=== PATIENT | male | born 1945 | race Caucasian/White ===

== ENCOUNTER 2017-05-03 11:27 | Inpatient (IN) | payer OTHER, MEDICARE ==
[2017-05-03] VITALS (11 sets, daily range): BP systolic 100–139; BP diastolic 65–88; PULSE 83–105; TEMP 36.8–37.4; O2SAT 97–100; Ht 170.2 cm; Wt 149.5 kg
[~2017-05-03] VITALS: Ht 170.2 cm; Wt 149.5 kg
[2017-05-03] MEDS ORDERED: ALBUT/IPRATROP 3MG/0.5MG NEB 3 ML VIAL INH STA (11:57)
[2017-05-03] MEDS ORDERED: ACETAMINOPHEN IV 100 ML IV ONE (12:00)
[2017-05-03 12:22] LABS: HEMATOCRIT 35.4 % (42-52); HEMOGLOBIN 12.7 g/dL (14.0-18.0); MEAN CELL VOLUME 94.1 fL (80-100); MEAN CORPUSCULAR HEMOGLOBIN 33.8 pg (25-34); MEAN CORPUSCULAR HGB CONC 35.9 g/dl (32-36); MEAN PLATELET VOLUME 9.4 fL (7.4-10.4); PLATELET COUNT 175 K/uL (130-400); RED CELL DISTRIBUTION WIDTH CV 13.9 % (11.5-14.5); RED CELL DISTRIBUTION WIDTH SD 48.1 fL (36.4-46.3); WHITE BLOOD COUNT 11.09 K/uL (4.8-10.8)
[2017-05-03 12:34] LABS: ALBUMIN 2.2 gm/dl (3.4-5.0); ALT/SGPT 46 U/L (12-78); BLOOD UREA NITROGEN 39 mg/dl (7-18); CARBON DIOXIDE 27 mmol/L (21-32); GLUCOSE 123 mg/dl (70-99); POTASSIUM 4.7 mmol/L (3.5-5.1); SODIUM 123 mmol/L (136-145)
[2017-05-03 12:39] LABS: ALKALINE PHOSPHATASE 87 U/L (45-117); AST/SGOT 80 U/L (15-37); CKMB 3.7 ng/ml (0.5-3.6); TOTAL PROTEIN 6.9 gm/dl (6.4-8.2)
[2017-05-03 12:47] LABS: EOS % 0.1 %; EOS ABS # 0.01 K/uL (0-0.5); IG# 0.19 K/uL (0.00-0.02); LYMPH % 3.3 %; LYMPH ABS # 0.37 K/uL (1.2-3.4); MONO % 5.3 %; MONO ABS # 0.59 K/uL (0.11-0.59); NEUT % 89.6 %; NEUT ABS # 9.93 K/uL (1.4-6.5)
--- NOTE | 2017-05-03 12:58 | DIAGNOSTIC IMAGING REPORT ---
CHEST ONE VIEW PORTABLE CLINICAL HISTORY: Shortness of breath. Respiratory distress. COMPARISON STUDY: No previous studies for comparison. FINDINGS: Note is made of a 4.7 cm round right infrahilar density. There is asymmetric right hilar enlargement. There is mild left basilar opacity. There is no convincing evidence for pulmonary edema. There is mild reticulonodular interstitial thickening. Moderate enlargement of the cardiac silhouette is noted. There is mild mediastinal widening. IMPRESSION: 1. 4.7 cm right infrahilar mass-like opacity with asymmetric right hilar enlargement and reticulonodular interstitial thickening, greater within the right lung. Mild left basilar opacity. The findings may reflect pneumonia however a neoplastic process is within the differential. A follow-up chest CT is recommended. 2. Moderate cardiomegaly without evidence for pulmonary edema. Electronically signed by: Mehrdad Howard M.D. 05/03/2017 12:56 PM Dictated Date/Time: 05/03/2017 12:53 PM
[2017-05-03 13:04] LABS: INR 1.4 (0.9-1.1); PTT PATIENT 38.8 SECONDS (21.0-31.0)
[2017-05-03] MEDS ORDERED: TERA5CAP PO (13:12)
[2017-05-03] MEDS ORDERED: APIX1TAB3 PO (13:12)
[2017-05-03] MEDS ORDERED: LORA-741 PO (13:12)
[2017-05-03] MEDS ORDERED: BISA10SU7 PR (13:12)
[2017-05-03] MEDS ORDERED: ATOR-24 PO (13:12)
[2017-05-03] MEDS ORDERED: ACET-1256 PO (13:12)
[2017-05-03] MEDS ORDERED: DILT120C68 PO (13:12)
[2017-05-03] MEDS ORDERED: SODIENE PR (13:12)
[2017-05-03] MEDS ORDERED: IPRASOL4 INH ×2 (13:12)
[2017-05-03] MEDS ORDERED: POLY335019 PO (13:12)
[2017-05-03] MEDS ORDERED: DOCU100C31 PO (13:12)
[2017-05-03] MEDS ORDERED: LNX125 PO (13:12)
[2017-05-03] MEDS ORDERED: META1TAB22 PO (13:12)
[2017-05-03] MEDS ORDERED: MOML PO (13:12)
[2017-05-03] MEDS ORDERED: TORS20TA2 PO (13:12)
[2017-05-03] MEDS ORDERED: SPIR25TA PO (13:12)
[2017-05-03] MEDS ORDERED: ASPI81TA28 PO (13:12)
[2017-05-03] MEDS ORDERED: SENN-65 PO (13:12)
[2017-05-03] MEDS ORDERED: CEFD300C2 PO (13:12)
[2017-05-03] MEDS ORDERED: TRAZ50TA35 PO (13:12)
[2017-05-03] MEDS ORDERED: FLUT1INH INH (13:12)
[2017-05-03] MEDS ORDERED: PRED20TA2 PO (13:12)
[2017-05-03] MEDS ORDERED: LORAZEPAM 2 MG/ML 1 ML VIAL IV STA (13:14)
--- NOTE | 2017-05-03 13:29 | EMERGENCY ROOM VISIT NOTE ---
ED Visit Note First contact with patient: 11:35 This Patient was discussed with the Physician front end assistant, Esteban Durham PA-C. The pertinent historical and physical exam findings were confirmed. I agree with the studies ordered and with the interpretations of these studies. I agree with the disposition and care plan.
[2017-05-03] MEDS ORDERED: VANCOMYCIN CONSULT ACTIVE PRN ×2 (13:45)
[2017-05-03] MEDS ORDERED: VANCOMYCIN INJ 1,000 MG in SODIUM CHLORIDE 0.9% 250ML 250 ML IV STA (13:45)
[2017-05-03] MEDS ORDERED: LEVAQUIN 750MG / 150ML D5W IV ONE (13:45)
[2017-05-03] MEDS ORDERED: CONSULT PHARMACY STA (13:48)
--- NOTE | 2017-05-03 13:56 | History and Physical ---
History & Physical Date & Time of Service: May 03, 2017 at 13:56 Chief Complaint: Resp Distress Primary Care Physician: Amaya Don PA-C History of Present Illness Source: hospital records This is a 18-year-old male with a past medical history of asthma, hypertension, hyperlipidemia recently diagnosed with A. fib on Eliquis and digoxin, history of coronary artery disease, history of CKD stage III, chronic diastolic heart failure, obesity, obstructive sleep apnea on CPAP at night, Patient was recently admitted to [facility] from 04/15/2017 to 05/02/2017 for shortness of breath, chest tightness, productive cough, found to have a new diagnosis of atrial fibrillation with RVR, Patient was diagnosed with large B-cell lymphoma via CT-guided biopsy of lymph nodes done on 04/25/2017, Patient was evaluated by oncology Dr. Iqbal, was scheduled to follow-up with hematology oncology in 1-2 weeks, for initiation of outpatient chemo. She was discharged to [facility] rehab, Sent to rehab to [facility] ER, as patient is developed severe shortness of breath, tachypnea tachycardia In the ER patient was found to be A. fib RVR, given dose of digoxin Chest x-ray shows 4 4.7 cm right infrahilar masslike opacity with asymmetric right hilar enlargement and reticulonodular interstitial thickening, greater within the right lung. Mild left left basilar opacity opacity. The findings may reflect pneumonia however a neoplastic process is within the differential Remained hypoxic in the ER required 5 L O2 via nasal cannula (was not on home O2 prior) Given a dose of nebulizer treatment, empiric antibiotic with Levaquin in ER Initially admitted to telemetry. Next few hours, patient's respiratory status continues to decline, found to have increased respiratory distress with using of accessory muscles. Pulmonary critical care was consulted. Patient was transferred to ICU for further care CT chest with contrast done which shows very large tumor burden with an increase in number and size of the pulmonary nodule compared to prior CAT scan done and [facility], compromising his intrathoracic airway. Case discussed with sports internship and on-call hematology oncology Dr. Gomez, recommend patient needs to be transferred to tertiary care unit preferably [facility] as patient will need emergent chemo treatment Plan of care discussed with on-call hematology oncology in [facility] and pulmonary critical care patient was intubated in the ICU for airway support Life flighted to [facility] . Patient's given update over the phone Social History Smoking Status: Unknown if Ever Smoked Allergies Coded Allergies: Ampicillin (Verified Allergy, Unknown, RASH,ITCHING, 05/03/17) Sulbactam (Verified Allergy, Unknown, RASH,ITCHING, 05/03/17) Home Medications Scheduled Apixaban (Eliquis), 5 MG PO BID Aspirin (Aspirin Ec), 81 MG PO DAILY Atorvastatin (Lipitor), 40 MG PO DAILY Cefdinir (Omnicef), 300 MG PO Q12H Digoxin (Digoxin), 0.125 MCG PO DAILY Diltiazem Hcl Ext Rel (Tiazac), 480 MG PO QPM Docusate Sodium (Docusate Sodium), 1 CAP PO BID Fluticasone Furoate-Vilanterol (Breo Ellipta), 1 PUFF INH DAILY Ipratropium-Albuterol (Duoneb), 1 TREATMENT INH QID Ipratropium-Albuterol (Duoneb), 1 TREATMENT INH Q4H Levalbuterol (Levalbuterol), 1.25 MG INH Q6R Prednisone (Prednisone Tab), 20 MG PO DAILY Spironolactone (Aldactone), 25 MG PO DAILYBB Terazosin Hcl (Hytrin), 10 MG PO HS Torsemide (Demadex), 40 MG PO DAILYBB Scheduled PRN Acetaminophen (Tylenol), 500 MG PO Q4 PRN for UNDECIDED Bisacodyl (Bisac-Evac), 1 SUPP GA DAILY PRN for Consult Lorazepam (Ativan), 0.5 MG PO Q8 PRN for Anxiety Magnesium Hydroxide (Milk Of Magnesia), 30 ML PO DAILY PRN for Constipation Metaxalone (Skelaxin), 200 MG PO TID PRN for MUSCLE SPASMS Polyethylene Glycol 3350 (Miralax), 17 GM PO DAILY PRN for Constipation Senna/Docusate Sod (Senokot S), 1 TAB PO DAILY PRN for Constipation Sodium Phosphate/Biphosphate (Fleet Enema), 1 EA GA DAILY PRN for Constipation Trazodone Hcl (Trazodone), 100 MG PO HS PRN for Sleep Review of Systems Constitutional: + sweats, + weakness, + fatigue Respiratory: + cough, + wheezing, + shortness of breath, + dyspnea on exertion , + dyspnea at rest, + problem reported (significant respiratory distress started this AM ) Cardiovascular: + chest pain (due to SOB ), + orthopnea Abdomen: + nausea Neurologic: + weakness, + numbness/tingling, + vertigo, + balance problems Psychiatric: + anxiety Endocrine: + fatigue Physical Exam Vital Signs Date Time Temp Pulse Resp B/P (MAP) Pulse Ox O2 Delivery O2 Flow Rate FiO2 05/03/17 13:15 37.3 98 24 130/86 94 Oxymask 4.0 05/03/17 13:15 37.3 05/03/17 11:59 94 Oxymask 3.0 05/03/17 11:53 118 05/03/17 11:35 38.0 105 32 145/100 97 Non-Rebreather 15.0 General Appearance: + moderate distress (Due to respiratory failure / respiratory distress), + obese Head: normocephalic, atraumatic Eyes: normal inspection, sclerae normal ENT: + pertinent finding (BiPAP on place) Neck: no JVD Respiratory/Chest: + respiratory distress, + decreased breath sounds, + accessory muscle use, + crackles, + rales Cardiovascular: + tachycardia, + irregularly irregular Abdomen/GI: non tender, soft Extremities/Musculoskelatal: no pedal edema Neurologic/Psych: + pertinent finding (Very anxious due to respiratory distress ) Skin: + diaphoresis Diagnostics Laboratory Results Results Past 24 Hours Test 05/03/17 12:05 05/03/17 12:44 05/03/17 13:44 Range/Units White Blood Count 11.09 4.8-10.8 K/uL Red Blood Count 3.76 4.7-6.1 M/uL Hemoglobin 12.7 14.0-18.0 g/dL Hematocrit 35.4 42-52 % Mean Corpuscular Volume 94.1 80-100 fL Mean Corpuscular Hemoglobin 33.8 25-34 pg Mean Corpuscular Hemoglobin Concent 35.9 32-36 g/dl Platelet Count 175 130-400 K/uL Mean Platelet Volume 9.4 7.4-10.4 fL Neutrophils (%) (Auto) 89.6 % Lymphocytes (%) (Auto) 3.3 % Monocytes (%) (Auto) 5.3 % Eosinophils (%) (Auto) 0.1 % Basophils (%) (Auto) 0.0 % Neutrophils # (Auto) 9.93 1.4-6.5 K/uL Lymphocytes # (Auto) 0.37 1.2-3.4 K/uL Monocytes # (Auto) 0.59 0.11-0.59 K/uL Eosinophils # (Auto) 0.01 0-0.5 K/uL Basophils # (Auto) 0.00 0-0.2 K/uL RDW Standard Deviation 48.1 36.4-46.3 fL RDW Coefficient of Variation 13.9 11.5-14.5 % Immature Granulocyte % (Auto) 1.7 % Immature Granulocyte # (Auto) 0.19 0.00-0.02 K/uL Toxic Vacuolation 1+ Sodium Level 123 136-145 mmol/L Potassium Level 4.7 3.5-5.1 mmol/L Chloride Level 86 98-107 mmol/L Carbon Dioxide Level 27 21-32 mmol/L Anion Gap 10.0 3-11 mmol/L Blood Urea Nitrogen 39 7-18 mg/dl Creatinine 1.70 0.60-1.40 mg/dl Est Creatinine Clear Calc Drug Dose 60.4 ml/min Estimated GFR () 46.3 Estimated GFR (Non- 40.0 BUN/Creatinine Ratio 22.8 10-20 Random Glucose 123 70-99 mg/dl Lactic Acid Level 1.7 0.4-2.0 mmol/L Calcium Level 8.0 8.5-10.1 mg/dl Total Bilirubin 0.9 0.2-1 mg/dl Aspartate Amino Transf (AST/SGOT) 80 15-37 U/L Alanine Aminotransferase (ALT/SGPT) 46 12-78 U/L Alkaline Phosphatase 87 45-117 U/L Total Creatine Kinase 377 39-308 U/L Creatine Kinase MB 3.7 0.5-3.6 ng/ml Creatine Kinase MB Ratio 1.0 0-3.0 Troponin I < 0.015 0-0.045 ng/ml Total Protein 6.9 6.4-8.2 gm/dl Albumin 2.2 3.4-5.0 gm/dl Globulin 4.7 2.5-4.0 gm/dl Albumin/Globulin Ratio 0.5 0.9-2 Prothrombin Time 14.5 9.0-12.0 SECONDS Prothromb Time International Ratio 1.4 0.9-1.1 Activated Partial Thromboplast Time 38.8 21.0-31.0 SECONDS Partial Thromboplastin Ratio 1.5 Microbiology Results 05/03/17 Blood Culture, Ordered Pending 05/03/17 Blood Culture, Received Pending Diagnostic Radiology CHEST XRAY : IMPRESSION: 1. 4.7 cm right infrahilar mass-like opacity with asymmetric right hilar enlargement and reticulonodular interstitial thickening, greater within the right lung. Mild left basilar opacity. The findings may reflect pneumonia however a neoplastic process is within the differential. A follow-up chest CT is recommended. 2. Moderate cardiomegaly without evidence for pulmonary edema. CT ANGIOGRAM OF THE CHEST FINDINGS: There is an enlarged upper left paratracheal lymph node versus substernal thyroid extension. There was no evidence of thoracic aortic dilatation. Evaluation of pulmonary arteries is limited secondary to respiratory motion artifact. No central emboli are visualized. There are small bilateral pleural effusions right greater than left There are multiple bilateral pulmonary masses. This includes a 63 mm right lower lobe pulmonary nodule a 41 mm right lower lobe pulmonary nodule a 63 mm right hilar mass as well as a 56 mm right hilar mass. IMPRESSION: 1. Multiple large bilateral pulmonary masses. The findings should be presumed to represent metastatic disease unless proven otherwise 2. Small bilateral pleural effusions right greater than left 3. Examination limited due to respiratory motion artifact and large body habitus. No central emboli identified. EKG Twelve-lead EKG: Ventricular rate 102 bpm QRS duration: 74 ms QT/QTc: 350/456 ms P-R-T 68 62 Atrial fibrillation with rapid ventricular response Low voltage QRS Abnormal EKG No previous EKGs available Impression Assessment and Plan 1. Acute hypoxemic respiratory failure: Due to large tumor burden in chest, CT chest with contrast shows progression of tumor/mass in chest compromising intrathoracic airway . Blood gas shows: PH 7.48/PCO2 36/PO2 73/bicarb of 27/ABG oxygen saturation 95.3/on 3 L by nasal cannula Patient continued to decompensate while on BiPAP Patient is evaluated in ICU Plan of care discussed with sports internship and on-call hematology oncology. We will need to be transferred to tertiary care center for emergent chemo treatment/and ongoing respiratory support 2. Diffuse large B-cell lymphoma: Recently diagnosed 2 weeks ago [facility] Evaluated by hematology oncology Dr. Iqbal CT Guided biopsy of large pulmonary nodule on 04/25 showed large B-cell lymphoma. Patient did not receive any chemo treatment in that admission Was scheduled to see hematology oncology 1-2 weeks after discharge from rehab. Surgical pathology biopsy from the lung nodule: diffuse large cell lymphoma, non-germinal cell type, negative for CD10, positive for CD45 CD20 and MUMI . EBV is positive in the tumor Plan of care discussed with on-call pathology oncology in [place] , Is being transferred to ICU and [facility] 3. A. fib RVR: Recently diagnosed in the past admission in [facility] Developed A. fib RVR possibly secondary to respiratory distress hypoxia, Patient is continued. Digoxin was in Cardizem Heart rate improved after BiPAP support On Eliquis for chronic anticoagulation 4. Chronic diastolic heart failure: No evidence of volume overload We will hold patient's outpatient diuretics of Aldactone and torsemide in the setting of acute respiratory failure 5. Acute kidney injury on CKD stage III Creatinine elevated 1.7 Possible secondary to poor p.o. intake, dehydration No evidence of sepsis Continue to hold diuretics, until renal function improves Full code DVT prophylaxis: On Eliquis Disposition: Patient is being transferred to [facility] in [place] via [facility] Level of Care Critical Care Resuscitation Status FULL RESUSCITATION VTE Prophylaxis VTE Risk Assessment Done? Y/N: Yes Risk Level: High Given or contraindicated: Other Anticoagulation (Eliquis)
[2017-05-03] MEDS ORDERED: ONDANSETRON INJ 2 MG/ML 2 ML VIAL IV PRN (14:00)
[2017-05-03] MEDS ORDERED: HEPARIN SOD 5000 UNIT/0.5 ML CARP SQ SCH (14:00)
[2017-05-03] MEDS ORDERED: DOCUSATE SODIUM/SENNA 50/8.6MG TAB PO PRN (14:00)
[2017-05-03] MEDS ORDERED: NITROGLYCERIN 0.4 MG SL PER TAB CHARGE SL PRN (14:00)
[2017-05-03] MEDS ORDERED: ACETAMINOPHEN 325 MG TAB PO PRN (14:00)
[2017-05-03] MEDS ORDERED: POLYETHYLENE (MIRALAX) 17 GM PACK PO PRN (14:00)
[2017-05-03] MEDS ORDERED: NON-FORMULARY MEDICATION (Polyethylene Glycol 3350 (Miralax) 17 GM) PO PRN (14:00)
[2017-05-03] MEDS ORDERED: ALUMINUM/MAGNESIUM/SIMETH (MAALOX MAX) 30 ML UDC PO PRN (14:00)
[2017-05-03] MEDS ORDERED: MAGNESIUM HYDROXIDE SUSP 30 ML UDC PO PRN ×2 (14:00)
[2017-05-03] MEDS ORDERED: VANCOMYCIN INJ 2,750 MG in SODIUM CHLORIDE 0.9% 500ML 500 ML IV SCH (14:30)
[2017-05-03 14:53] LABS: INFLUENZA A PCR Neg for Influ A (NEG); INFLUENZA B PCR Neg for Influ B (NEG)
[2017-05-03] MEDS ORDERED: LEVALBUTEROL/IPRATROPIUM NEB INH SCH (15:00)
[2017-05-03] MEDS ORDERED: LEVALBUTEROL 1.25MG/0.5ML NEB INH SCH (15:00)
[2017-05-03] MEDS ORDERED: IPRATROPIUM BROMIDE NEB SOLN 0.02% 2.5 ML VIAL INH SCH (15:00)
[2017-05-03] MEDS ORDERED: AZTREONAM CONSULT ACTIVE PRN (15:15)
[2017-05-03] MEDS ORDERED: LEVOFLOXACIN CONSULT ACTIVE PRN (15:15)
[2017-05-03] MEDS ORDERED: SODIUM CHLORIDE 0.9% 1000ML 1,000 ML IV SCH (15:15)
[2017-05-03] MEDS ORDERED: OPTIRAY 320 IV PRN (15:30)
--- NOTE | 2017-05-03 15:40 | Pharmacy Progress Note ---
Pharmacy Antibiotic Consult Date of Service: May 03, 2017. Pharmacy Dosing Scope Pharmacy is consulted to initiate Vancomycin and Levaquin IV dosing therapy, order appropriate labs and adjust drug dose/frequency. Subjective The patient is a 71 year old male admitted on May 03, 2017 at 13:46. Objective Height (Feet): 5 Height (Inches): 9.00 Weight (Kilograms): 157.900 Lab Results (24hrs): Test 05/03/17 12:05 05/03/17 12:44 05/03/17 13:53 05/03/17 15:19 White Blood Count 11.09 K/uL (4.8-10.8) Red Blood Count 3.76 M/uL (4.7-6.1) Hemoglobin 12.7 g/dL (14.0-18.0) Hematocrit 35.4 % (42-52) Mean Corpuscular Volume 94.1 fL (80-100) Mean Corpuscular Hemoglobin 33.8 pg (25-34) Mean Corpuscular Hemoglobin Concent 35.9 g/dl (32-36) Platelet Count 175 K/uL (130-400) Mean Platelet Volume 9.4 fL (7.4-10.4) Neutrophils (%) (Auto) 89.6 % Lymphocytes (%) (Auto) 3.3 % Monocytes (%) (Auto) 5.3 % Eosinophils (%) (Auto) 0.1 % Basophils (%) (Auto) 0.0 % Neutrophils # (Auto) 9.93 K/uL (1.4-6.5) Lymphocytes # (Auto) 0.37 K/uL (1.2-3.4) Monocytes # (Auto) 0.59 K/uL (0.11-0.59) Eosinophils # (Auto) 0.01 K/uL (0-0.5) Basophils # (Auto) 0.00 K/uL (0-0.2) RDW Standard Deviation 48.1 fL (36.4-46.3) RDW Coefficient of Variation 13.9 % (11.5-14.5) Immature Granulocyte % (Auto) 1.7 % Immature Granulocyte # (Auto) 0.19 K/uL (0.00-0.02) Toxic Vacuolation 1+ Sodium Level 123 mmol/L (136-145) Potassium Level 4.7 mmol/L (3.5-5.1) Chloride Level 86 mmol/L (98-107) Carbon Dioxide Level 27 mmol/L (21-32) Anion Gap 10.0 mmol/L (3-11) Blood Urea Nitrogen 39 mg/dl (7-18) Creatinine 1.70 mg/dl (0.60-1.40) Est Creatinine Clear Calc Drug Dose 60.4 ml/min Estimated GFR () 46.3 Estimated GFR (Non- 40.0 BUN/Creatinine Ratio 22.8 (10-20) Random Glucose 123 mg/dl (70-99) Lactic Acid Level 1.7 mmol/L (0.4-2.0) Calcium Level 8.0 mg/dl (8.5-10.1) Total Bilirubin 0.9 mg/dl (0.2-1) Aspartate Amino Transf (AST/SGOT) 80 U/L (15-37) Alanine Aminotransferase (ALT/SGPT) 46 U/L (12-78) Alkaline Phosphatase 87 U/L (45-117) Total Creatine Kinase 377 U/L (39-308) Creatine Kinase MB 3.7 ng/ml (0.5-3.6) Creatine Kinase MB Ratio 1.0 (0-3.0) Troponin I < 0.015 ng/ml (0-0.045) Total Protein 6.9 gm/dl (6.4-8.2) Albumin 2.2 gm/dl (3.4-5.0) Globulin 4.7 gm/dl (2.5-4.0) Albumin/Globulin Ratio 0.5 (0.9-2) Prothrombin Time 14.5 SECONDS (9.0-12.0) Prothromb Time International Ratio 1.4 (0.9-1.1) Activated Partial Thromboplast Time 38.8 SECONDS (21.0-31.0) Partial Thromboplastin Ratio 1.5 Procalcitonin 0.82 ng/ml (0-0.5) Influenza Type A (RT-PCR) Neg for Influ A (NEG) Influenza Type B (RT-PCR) Neg for Influ B (NEG) Arterial Blood pH 7.48 (7.35-7.45) Arterial Blood Partial Pressure CO2 36 mmHg (35-46) Arterial Blood Partial Pressure O2 73 mm/Hg (80-95) Arterial Blood HCO3 27 mmol/L (19-24) Arterial Blood Oxygen Saturation 95.1 % (90-95) Arterial Blood Base Excess 3.3 mEq/L (-9-1.8) Arterial Blood Gas Delivery ROOM AIR Harjinder Test POS (POS) Assessment & Plan Assessment Vancomycin and levaquin for pneumonia. Nasal swab pending Blood cultures pending PMH and Baseline Renal function unknown at this time. Plan Vancomycin * Loading dose: 2750 mg (17.5mg/kg) IV X 1 dose then: * Maintenance dose: 2000 mg ( 13mg/kg) IV q 14 hours * Goal trough level for pneumonia: 15-20 mg/kg * Trough level ordered for 05/05 @1730 Levaquin * 750mg IV q 24 hours for Crcl greater than 50ml/min Pt is also on Azactam 2 gm IV q 8 hours Pharmacy will continue to follow and will adjust dose/frequency as necessary. Thank you
[2017-05-03] MEDS ORDERED: AZTREONAM IV 2,000 MG in DEXTROSE 5% 100ML 100 ML IV SCH (16:00)
--- NOTE | 2017-05-03 18:57 | DIAGNOSTIC IMAGING REPORT ---
CT ANGIOGRAM OF THE CHEST CLINICAL HISTORY: Shortness of breath. History of carcinoma. PULMONARY MASS VERSUS PNEUMONIA ON CHEST X-RAY COMPARISON STUDY: Chest x-ray dated 05/03/2017 TECHNIQUE: Following the IV administration of 100 mL of [id number]-320, CT angiogram of the thorax was performed from the thoracic inlet to the lung bases utilizing the pulmonary embolus protocol. Images are reviewed in the axial, sagittal, and coronal planes. IV contrast was administered without complication. MIP imaging was performed. A dose lowering technique was utilized adhering to the principles of ALARA. CT DOSE: 835.86 mGy.cm FINDINGS: There is an enlarged upper left paratracheal lymph node versus substernal thyroid extension. There was no evidence of thoracic aortic dilatation. Evaluation of pulmonary arteries is limited secondary to respiratory motion artifact. No central emboli are visualized. There are small bilateral pleural effusions right greater than left There are multiple bilateral pulmonary masses. This includes a 63 mm right lower lobe pulmonary nodule a 41 mm right lower lobe pulmonary nodule a 63 mm right hilar mass as well as a 56 mm right hilar mass. IMPRESSION: 1. Multiple large bilateral pulmonary masses. The findings should be presumed to represent metastatic disease unless proven otherwise 2. Small bilateral pleural effusions right greater than left 3. Examination limited due to respiratory motion artifact and large body habitus. No central emboli identified. Electronically signed by: Jef Mckoy M.D. 05/03/2017 6:56 PM Dictated Date/Time: 05/03/2017 6:51 PM
--- NOTE | 2017-05-03 19:36 | Pulmonary Consultation ---
History General Date of Service: May 03, 2017. Stated Complaint: Respiratory Failure HPI The patient is a 71 year old male who presents to [facility] with complaints of Respiratory Failure. The patient's primary care provider is Amaya Don PA-C. Historian: patient, other (records) Onset: just prior to arrival Severity: severe Review of Systems Constitutional: reports: no symptoms ENT: reports: no symptoms Cardiovascular: reports: no symptoms Respiratory: reports: cough, orthopnea, shortness of breath Gastrointestinal: reports: no symptoms Genitourinary - Male: reports: no symptoms Musculoskeletal: reports: no symptoms Integumentary: reports: no symptoms Neurologic: reports: no symptoms Psychiatric: reports: no symptoms Past Medical History Past Medical History: History of new onset A. fib, newly diagnosed B-cell lymphoma, multiple lung masses, history of smoking in the past unclear whether he had a history of COPD , morbid obesity, possible obstructive sleep apnea. Past Surgical History: Lung biopsy transbronchial done at [place]. Diagnosis consistent with B-cell lymphoma. According to the records. Social History Hx Tobacco Use In Past Year?: Yes Smoking Status: Former Smoker Allergies Coded Allergies: Ampicillin (Verified Allergy, Unknown, RASH,ITCHING, 05/03/17) Sulbactam (Verified Allergy, Unknown, RASH,ITCHING, 05/03/17) Current Medications Reported Home Medications Medications Dose Route/Sig Max Daily Dose Days Date Category Tylenol (Acetaminophen) 500 Mg Tab 500 Mg PO Q4 PRN 05/03/17 Reported Miralax (Polyethylene Glycol 3350) 1 Pow Pow 17 Gm PO DAILY PRN 05/03/17 Reported Senokot S (Senna/Docusate Sodium) 1 Tab Tab 1 Tab PO DAILY PRN 05/03/17 Reported Bisac-Evac (Bisacodyl) 10 Mg Sup 1 Supp OH DAILY PRN 05/03/17 Reported Fleet Enema (Sodium Phosphate/Biphosphate) Ranjana 1 Ea OH DAILY PRN 05/03/17 Reported Milk Of Magnesia (Magnesium Hydroxide) 30 Ml Susp 30 Ml PO DAILY PRN 05/03/17 Reported Docusate Sodium 100 Mg Cap 1 Cap PO BID 7 05/03/17 Reported Aldactone (Spironolactone) 25 Mg Tab 25 Mg PO DAILYBB 05/03/17 Reported Demadex (Torsemide) 20 Mg Tab 40 Mg PO DAILYBB 05/03/17 Reported Hytrin (Terazosin Hcl) 5 Mg Cap 10 Mg PO HS 05/03/17 Reported Trazodone (Trazodone HCl) 50 Mg Tab 100 Mg PO HS PRN 05/03/17 Reported Omnicef (Cefdinir) 300 Mg Cap 300 Mg PO Q12H 05/03/17 Reported Skelaxin (Metaxalone) 800 Mg Tab 200 Mg PO TID PRN 05/03/17 Reported Ativan (Lorazepam) 0.5 Mg Tab 0.5 Mg PO Q8 PRN 05/03/17 Reported Lipitor (Atorvastatin Calcium) 40 Mg Tab 40 Mg PO DAILY 05/03/17 Reported Prednisone Tab (Prednisone) 20 Mg Tab 20 Mg PO DAILY 05/03/17 Reported Breo Ellipta (Fluticasone Furoate-Vilanterol) 1 Inh Inh 1 Puff INH DAILY 05/03/17 Reported Tiazac (Diltiazem HCl) 120 Mg Capcr 480 Mg PO QPM 05/03/17 Reported Digoxin 0.125 Mg Tab 0.125 Mcg PO DAILY 05/03/17 Reported Aspirin Ec (Aspirin) 81 Mg Tab 81 Mg PO DAILY 05/03/17 Reported Duoneb (Ipratropium-Albuterol) 3 Ml Nebu 1 Treatment INH Q4H 05/03/17 Reported Duoneb (Ipratropium-Albuterol) 3 Ml Nebu 1 Treatment INH QID 05/03/17 Reported Eliquis (Apixaban) 5 Mg Tab 5 Mg PO BID 05/03/17 Reported Physical Physical Exam Vital Signs: Date Time Temp Pulse Resp B/P (MAP) Pulse Ox O2 Delivery O2 Flow Rate FiO2 05/03/17 15:24 36.8 91 16 122/76 98 Mask 4.0 05/03/17 15:03 37.3 107 42 146/83 94 05/03/17 14:32 146/83 05/03/17 14:27 107 42 94 05/03/17 14:14 97 05/03/17 14:01 118/67 05/03/17 13:57 101 24 94 05/03/17 13:31 137/101 05/03/17 13:27 98 45 89 05/03/17 13:15 37.3 98 24 130/86 94 Oxymask 4.0 05/03/17 13:15 37.3 05/03/17 13:10 130/86 05/03/17 13:01 134/79 05/03/17 12:57 99 18 05/03/17 12:34 142/84 05/03/17 12:27 113 27 93 05/03/17 11:59 94 Oxymask 3.0 05/03/17 11:57 109 28 95 05/03/17 11:53 118 05/03/17 11:35 38.0 105 32 145/100 97 Non-Rebreather 15.0 05/03/17 11:32 145/100 General Appearance: uncomfortable Eyes: PERRLA ENT: NORMAL MOUTH EXAM, NORMAL THROAT EXAM Neck: NO TENDERNESS Respiratory: rhonchi, other Cardiovasular: NORMAL S1S2, NO M/G/R, irregular rate Abdomen: NON TENDER, NO MASSES Edema: Bilateral LE (1+) Neuro: ALERT, ORIENTED x 3, NORMAL MOTOR EXAM, NORMAL SENSATION, NORMAL CEREBELLAR EXAM Psychiatric: NORMAL AFFECT Diagnostics Labs Results Past 24 Hours Test 05/03/17 12:05 05/03/17 12:44 05/03/17 13:53 05/03/17 15:19 Range/Units White Blood Count 11.09 4.8-10.8 K/uL Red Blood Count 3.76 4.7-6.1 M/uL Hemoglobin 12.7 14.0-18.0 g/dL Hematocrit 35.4 42-52 % Mean Corpuscular Volume 94.1 80-100 fL Mean Corpuscular Hemoglobin 33.8 25-34 pg Mean Corpuscular Hemoglobin Concent 35.9 32-36 g/dl Platelet Count 175 130-400 K/uL Mean Platelet Volume 9.4 7.4-10.4 fL Neutrophils (%) (Auto) 89.6 % Lymphocytes (%) (Auto) 3.3 % Monocytes (%) (Auto) 5.3 % Eosinophils (%) (Auto) 0.1 % Basophils (%) (Auto) 0.0 % Neutrophils # (Auto) 9.93 1.4-6.5 K/uL Lymphocytes # (Auto) 0.37 1.2-3.4 K/uL Monocytes # (Auto) 0.59 0.11-0.59 K/uL Eosinophils # (Auto) 0.01 0-0.5 K/uL Basophils # (Auto) 0.00 0-0.2 K/uL RDW Standard Deviation 48.1 36.4-46.3 fL RDW Coefficient of Variation 13.9 11.5-14.5 % Immature Granulocyte % (Auto) 1.7 % Immature Granulocyte # (Auto) 0.19 0.00-0.02 K/uL Toxic Vacuolation 1+ Sodium Level 123 136-145 mmol/L Potassium Level 4.7 3.5-5.1 mmol/L Chloride Level 86 98-107 mmol/L Carbon Dioxide Level 27 21-32 mmol/L Anion Gap 10.0 3-11 mmol/L Blood Urea Nitrogen 39 7-18 mg/dl Creatinine 1.70 0.60-1.40 mg/dl Est Creatinine Clear Calc Drug Dose 60.4 ml/min Estimated GFR () 46.3 Estimated GFR (Non- 40.0 BUN/Creatinine Ratio 22.8 10-20 Random Glucose 123 70-99 mg/dl Lactic Acid Level 1.7 0.4-2.0 mmol/L Calcium Level 8.0 8.5-10.1 mg/dl Total Bilirubin 0.9 0.2-1 mg/dl Aspartate Amino Transf (AST/SGOT) 80 15-37 U/L Alanine Aminotransferase (ALT/SGPT) 46 12-78 U/L Alkaline Phosphatase 87 45-117 U/L Total Creatine Kinase 377 39-308 U/L Creatine Kinase MB 3.7 0.5-3.6 ng/ml Creatine Kinase MB Ratio 1.0 0-3.0 Troponin I < 0.015 0-0.045 ng/ml Total Protein 6.9 6.4-8.2 gm/dl Albumin 2.2 3.4-5.0 gm/dl Globulin 4.7 2.5-4.0 gm/dl Albumin/Globulin Ratio 0.5 0.9-2 Prothrombin Time 14.5 9.0-12.0 SECONDS Prothromb Time International Ratio 1.4 0.9-1.1 Activated Partial Thromboplast Time 38.8 21.0-31.0 SECONDS Partial Thromboplastin Ratio 1.5 Procalcitonin 0.82 0-0.5 ng/ml Influenza Type A (RT-PCR) Neg for Influ A NEG Influenza Type B (RT-PCR) Neg for Influ B NEG Arterial Blood pH 7.48 7.35-7.45 Arterial Blood Partial Pressure CO2 36 35-46 mmHg Arterial Blood Partial Pressure O2 73 80-95 mm/Hg Arterial Blood HCO3 27 19-24 mmol/L Arterial Blood Oxygen Saturation 95.1 90-95 % Arterial Blood Base Excess 3.3 -9-1.8 mEq/L Arterial Blood Gas Delivery ROOM AIR Harjinder Test POS POS Test 05/03/17 16:11 Range/Units Bedside Glucose 123 70-99 mg/dl Microbiology Results 05/03/17 Blood Culture, Received Pending 05/03/17 Blood Culture, Received Pending 05/03/17 MRSA DNA Surveillance Screen - Final, Complete Specimen Negative for MRSA by DNA Probe Diagnostic Radiology Chest x-ray followed by CAT scan of the chest which revealed multiple masses taken over most of the lung parenchyma and very narrowed airway at the distal trachea with lipomatosis in the mediastinum. Small pleural effusion on the right side. Impression Assessment and Plan #1 B-cell lymphoma with large masses taken over the lung tissue resulted in acute respiratory failure in this patient. #2 acute and chronic hypoxic respiratory failure with tachypnea. #3 new onset A. fib with one of the masses adjacent to the left atrium. #4 morbid obesity. #5 possible superimposed COPD. #6 hyponatremia which can be related to volume dehydration versus SIADH. Plan: #1 urgent oncology consult. #2 the only option for this patient to improve his respiratory status is salvage chemotherapy. The masses are too large and compromising the airways as well. One of the masses noted also to compress on the left atrium. I have reviewed the CAT scan personally. #3 morbid obesity adding to his respiratory distress. #4 I am not sure about any infectious process in this patient at this point. The presence of bandemia and leukocytosis could be related to minimal bronchitis but is not the cause of his respiratory distress. #[address] the patient on BiPAP 18 over 5 empirically. #6 I will start the patient on Solu-Medrol 60 mg IV every 6 hours, this will alleviate the inflammatory changes surrounding the lung masses as well as treat the possibility of COPD which I do not have documentation of his previous pulmonary function test. #7 the patient remains full code. #8 CAT scan of the chest was done with contrast, to rule out PE, no central PE can be identified, IV hydration started with normal saline. #9 I would obtain urine sodium and osmolality. #10 discontinue Aztreonam. #11 continue with vancomycin and Levaquin. #[address] Benitez, appreciate her input. Thank you, will follow. #9
[2017-05-03] MEDS ORDERED: ICU PROTOCOL FOR HYPERGLYCEMIA PRN (19:45)
[2017-05-03] MEDS ORDERED: METHYLPREDNISOLONE 125 MG VIAL IV STA (19:45)
[2017-05-03] MEDS ORDERED: METHYLPREDNISOLONE IV 60 MG in SYRINGE 0 ML IV SCH (20:00)
[2017-05-03] MEDS: METHYLPREDNISOLONE 125 MG in SYRINGE 0 ML IV STA ×2 (20:03→20:13)
[2017-05-03] MEDS ORDERED: APIXABAN 2.5 MG TAB PO SCH (21:00)
[2017-05-03] MEDS ORDERED: DILTIAZEM HCL 120 MG EXT REL CAP PO SCH (21:00)
[2017-05-03] MEDS ORDERED: DOCUSATE SODIUM 100 MG CAP PO SCH (21:00)
[2017-05-03] MEDS ORDERED: VANCOMYCIN INJ 1,000 MG in SODIUM CHLORIDE 0.9% 250ML 250 ML IV SCH (21:00)
[2017-05-03] MEDS ORDERED: RAPID SEQUENCE INDUCTION BAG ONE (21:16)
[2017-05-03] MEDS ORDERED: MIDAZOLAM 125MG/250ML D5W IV ONE (21:20)
[2017-05-03] MEDS ORDERED: MIDAZOLAM 125MG/250ML D5W 250 ML IV PRN (21:30)
[2017-05-03] MEDS ORDERED: NURSING VERBAL MED ORDER ONE (21:30)
[2017-05-03] MEDS ORDERED: FENTANYL 1250MCG/250ML NSS IV PRN (21:30)
[2017-05-03] MEDS ORDERED: XPNINS1255 INH (21:45)
--- NOTE | 2017-05-03 21:45 | Procedure Note ---
Procedure Note Procedure Date May 03, 2017. Procedure Description Procedure Name: Intubation Procedure time out: side/site verified, patient ID confirmed, correct procedure Consent obtained: verbal Performed by: attending Indications: therapeutic Contraindications: none Description: The patient needed intubation as he is in acute respiratory failure and going on the [facility] to [facility]. Neck this anesthetizing requested the patient needs to be intubated. Patient is morbidly obese with respiratory failure COPD and multiple large masses confirmed with diagnosis of B -cell lymphoma. I have spoken to the patient and he is in agreement. Discussed also with the . The patient was place in supine position, the patient was already on the BiPAP, with bag valve mask the patient was ventilated to O2 sat above the 90% for at least 2 minutes, the patient was initially injected with 4 mg of Versed followed by 20 mg of etomidate followed by 50 mg of rocuronium. The patient did require additional 4 mg of Versed. Using Mac #4 and #8 ET tube, a patient was intubated, vocal cords were visualized barely due to his body habitus, ET tube was placed to 21 cm by the lips, equal breath sounds, end-tidal CO2 was yellow, chest x-rays pending as of the time of this dictation, 1 attempt, no immediate complication. Complications: none Patient tolerated procedure: well
--- NOTE | 2017-05-03 21:47 | Discharge Instructions ---
Discharge Instructions Date of Service May 03, 2017. Admission Reason for Admission: Respiratory Failure Discharge Discharge Diagnosis / Problem: ACUTE RESPIRATORY FAILURE /LARGE B CELL LYMPHOMA /LARGE LUNGS TUMOR BURDEN Discharge Goals Goal(s): Therapeutic intervention Activity Recommendations Activity Limitations: as noted below . Instructions / Follow-Up Instructions / Follow-Up Pt is transferred to [facility] for further care accepting physician Dr Em Current Hospital Diet Patient's current hospital diet: Discharge Diet Recommended Diet: N/A Pending Studies Studies pending at discharge: no Medical Emergencies . Who to Call and When: Medical Emergencies: If at any time you feel your situation is an emergency, please call 911 immediately. . Non-Emergent Contact Non-Emergency issues call your: Oncologist . . "Provider Documentation" section prepared by Radha Benitez. . VTE Core Measure Inpt VTE Proph given/why not?: Other Anticoagulation (eliquis)
--- NOTE | 2017-05-03 22:04 | DIAGNOSTIC IMAGING REPORT ---
CHEST ONE VIEW PORTABLE CLINICAL HISTORY: intubation RESPIRATORY FAILURE COMPARISON STUDY: No previous studies for comparison. FINDINGS: The heart is enlarged. Nasogastric tube is been placed and passes into the stomach. There is an endotracheal tube positioned 5.8 cm above the stevan. There are large bilateral pulmonary masses.[ IMPRESSION: 1. Endotracheal tube 5.8 cm above the stevan 2. Nasogastric tube which passes into the stomach 3. Bilateral pulmonary masses Electronically signed by: Jef Mckoy M.D. 05/03/2017 10:03 PM Dictated Date/Time: 05/03/2017 10:02 PM
[2017-05-03] MEDS ORDERED: FENTANYL CITRATE 100 MCG 2 ML CARP IV ONE (23:19)
[2017-05-03] MEDS ORDERED: ETOMIDATE 2 MG/ML 20 ML VIAL IV ONE (23:19)
[2017-05-03] MEDS ORDERED: MIDAZOLAM HCL 5 MG/ML 2ML VIAL IV ONE (23:19)
[2017-05-03] MEDS ORDERED: ROCURONIUM BROMIDE 10 MG/ML 10 ML VIAL IV ONE (23:19)
[2017-05-04] MEDS ORDERED: VANCOMYCIN INJ 2,000 MG in SODIUM CHLORIDE 0.9% 500ML 500 ML IV SCH ×2
--- NOTE | 2017-05-04 00:19 | Discharge Summary ---
Discharge Summary Date of Service May 04, 2017. Discharge Summary Admission Date: May 03, 2017 at 13:46 Discharge Date: May 03, 2017 Discharge Disposition: Acute care facility ([facility] ) Principal Diagnosis: ACUTE RESPIRATORY FAILURE /LARGE B CELL LYMPHOMA /LARGE LUNGS TUMOR BURDEN Procedures: CT ANGIOGRAM OF THE CHEST FINDINGS: There is an enlarged upper left paratracheal lymph node versus substernal thyroid extension. There was no evidence of thoracic aortic dilatation. Evaluation of pulmonary arteries is limited secondary to respiratory motion artifact. No central emboli are visualized. There are small bilateral pleural effusions right greater than left There are multiple bilateral pulmonary masses. This includes a 63 mm right lower lobe pulmonary nodule a 41 mm right lower lobe pulmonary nodule a 63 mm right hilar mass as well as a 56 mm right hilar mass. IMPRESSION: 1. Multiple large bilateral pulmonary masses. The findings should be presumed to represent metastatic disease unless proven otherwise 2. Small bilateral pleural effusions right greater than left 3. Examination limited due to respiratory motion artifact and large body habitus. No central emboli identified. CHEST ONE VIEW PORTABLE CLINICAL HISTORY: Shortness of breath. Respiratory distress. COMPARISON STUDY: No previous studies for comparison. FINDINGS: Note is made of a 4.7 cm round right infrahilar density. There is asymmetric right hilar enlargement. There is mild left basilar opacity. There is no convincing evidence for pulmonary edema. There is mild reticulonodular interstitial thickening. Moderate enlargement of the cardiac silhouette is noted. There is mild mediastinal widening. IMPRESSION: 1. 4.7 cm right infrahilar mass-like opacity with asymmetric right hilar enlargement and reticulonodular interstitial thickening, greater within the right lung. Mild left basilar opacity. The findings may reflect pneumonia however a neoplastic process is within the differential. A follow-up chest CT is recommended. 2. Moderate cardiomegaly without evidence for pulmonary edema. Consultations: Pulmonary Critical Care Hematology /Oncology Medication Reconciliation New Medications: Levalbuterol (Levalbuterol) 1.25 Mg/0.5 Ml Nebu 1.25 MG INH Q6R for 30 Days Discontinued Medications: Acetaminophen (Tylenol) 500 Mg Tab 500 MG PO Q4 PRN for UNDECIDED, TAB Apixaban (Eliquis) 5 Mg Tab 5 MG PO BID, TAB Aspirin (Aspirin Ec) 81 Mg Tab 81 MG PO DAILY Atorvastatin (Lipitor) 40 Mg Tab 40 MG PO DAILY, TAB Bisacodyl (Bisac-Evac) 10 Mg Sup 1 SUPP GA DAILY PRN for Consult Cefdinir (Omnicef) 300 Mg Cap 300 MG PO Q12H, CAP Digoxin (Digoxin) 0.125 Mg Tab 0.125 MCG PO DAILY Diltiazem Hcl Ext Rel (Tiazac) 120 Mg Capcr 480 MG PO QPM, CAP Docusate Sodium (Docusate Sodium) 100 Mg Cap 1 CAP PO BID for 7 Days, #14 CAP Fluticasone Furoate-Vilanterol (Breo Ellipta) 1 Inh Inh 1 PUFF INH DAILY Ipratropium-Albuterol (Duoneb) 3 Ml Nebu 1 TREATMENT INH QID, INHA Ipratropium-Albuterol (Duoneb) 3 Ml Nebu 1 TREATMENT INH Q4H, INHA Lorazepam (Ativan) 0.5 Mg Tab 0.5 MG PO Q8 PRN for Anxiety, TAB Magnesium Hydroxide (Milk Of Magnesia) 30 Ml Susp 30 ML PO DAILY PRN for Constipation, ML Metaxalone (Skelaxin) 800 Mg Tab 200 MG PO TID PRN for MUSCLE SPASMS, TAB Polyethylene Glycol 3350 (Miralax) 1 Pow Pow 17 GM PO DAILY PRN for Constipation, #255 GM Prednisone (Prednisone Tab) 20 Mg Tab 20 MG PO DAILY, TAB Senna/Docusate Sod (Senokot S) 1 Tab Tab 1 TAB PO DAILY PRN for Constipation, TAB Sodium Phosphate/Biphosphate (Fleet Enema) Ranjana 1 EA GA DAILY PRN for Constipation, BTL Spironolactone (Aldactone) 25 Mg Tab 25 MG PO DAILYBB, TAB Terazosin Hcl (Hytrin) 5 Mg Cap 10 MG PO HS, CAP Torsemide (Demadex) 20 Mg Tab 40 MG PO DAILYBB, TAB Trazodone Hcl (Trazodone) 50 Mg Tab 100 MG PO HS PRN for Sleep, TAB Admission Information HPI (per Admitting provider): This is a 18-year-old male with a past medical history of asthma, hypertension, hyperlipidemia recently diagnosed with A. fib on Eliquis and digoxin, history of coronary artery disease, history of CKD stage III, chronic diastolic heart failure, obesity, obstructive sleep apnea on CPAP at night, Patient was recently admitted to [facility] from 04/15/2017 to 05/02/2017 for shortness of breath, chest tightness, productive cough, found to have a new diagnosis of atrial fibrillation with RVR, Patient was diagnosed with large B-cell lymphoma via CT-guided biopsy of lymph nodes done on 04/25/2017, Patient was evaluated by oncology Dr. Iqbal, was scheduled to follow-up with hematology oncology in 1-2 weeks, for initiation of outpatient chemo. She was discharged to [facility] rehab, Sent to rehab to [facility] ER, as patient is developed severe shortness of breath, tachypnea tachycardia In the ER patient was found to be A. fib RVR, given dose of digoxin Chest x-ray shows 4 4.7 cm right infrahilar masslike opacity with asymmetric right hilar enlargement and reticulonodular interstitial thickening, greater within the right lung. Mild left left basilar opacity opacity. The findings may reflect pneumonia however a neoplastic process is within the differential Remained hypoxic in the ER required 5 L O2 via nasal cannula (was not on home O2 prior) Given a dose of nebulizer treatment, empiric antibiotic with Levaquin in ER Initially admitted to telemetry. Next few hours, patient's respiratory status continues to decline, found to have increased respiratory distress with using of accessory muscles. Pulmonary critical care was consulted. Patient was transferred to ICU for further care CT chest with contrast done which shows very large tumor burden with an increase in number and size of the pulmonary nodule compared to prior CAT scan done and [facility], compromising his intrathoracic airway. Case discussed with residential life director and on-call hematology oncology Dr. Gomez, recommend patient needs to be transferred to tertiary care unit preferably [facility] as patient will need emergent chemo treatment Plan of care discussed with on-call hematology oncology in [facility] and pulmonary critical care patient was intubated in the ICU for airway support Life flighted to [facility] . Patient's given update over the phone Physical Exam (per Admitting): Physical Exam Vital Signs Date Time Temp Pulse Resp B/P (MAP) Pulse Ox O2 Delivery O2 Flow Rate FiO2 05/03/17 13:15 37.3 98 24 130/86 94 Oxymask 4.0 2/24/18 13:15 37.3 05/03/17 11:59 94 Oxymask 3.0 05/03/17 11:53 118 05/03/17 11:35 38.0 105 32 145/100 97 Non-Rebreather 15.0 General Appearance: + moderate distress (Due to respiratory failure / respiratory distress), + obese Head: normocephalic, atraumatic Eyes: normal inspection, sclerae normal ENT: + pertinent finding (BiPAP on place) Neck: no JVD Respiratory/Chest: + respiratory distress, + decreased breath sounds, + accessory muscle use, + crackles, + rales Cardiovascular: + tachycardia, + irregularly irregular Abdomen/GI: non tender, soft Extremities/Musculoskelatal: no pedal edema Neurologic/Psych: + pertinent finding (Very anxious due to respiratory distress ) Skin: + diaphoresis Hospital Course 1. Acute hypoxemic respiratory failure: Due to large tumor burden in chest, CT chest with contrast shows progression of tumor/mass in chest compromising intrathoracic airway . Blood gas shows: PH 7.48/PCO2 36/PO2 73/bicarb of 27/ABG oxygen saturation 95.3/on 3 L by nasal cannula Patient continued to decompensate while on BiPAP Patient is evaluated in ICU Plan of care discussed with residential life director and on-call hematology oncology. We will need to be transferred to tertiary care center for emergent chemo treatment/and ongoing respiratory support 2. Diffuse large B-cell lymphoma: Recently diagnosed 2 weeks ago lives [facility] Evaluated by hematology oncology Dr. Iqbal CT Guided biopsy of large pulmonary nodule on 04/25 showed large B-cell lymphoma. Patient did not receive any chemo treatment in that admission Was scheduled to see hematology oncology 1-2 weeks after discharge from rehab. Surgical pathology biopsy from the lung nodule: diffuse large cell lymphoma, non-germinal cell type, negative for CD10, positive for CD45 CD20 and MUMI . EBV is positive in the tumor Plan of care discussed with on-call pathology oncology in [place] , Is being transferred to ICU and [facility] 3. A. fib RVR: Recently diagnosed in the past admission in [facility] Developed A. fib RVR possibly secondary to respiratory distress hypoxia, Patient is continued. Digoxin was in Cardizem Heart rate improved after BiPAP support On Eliquis for chronic anticoagulation 4. Chronic diastolic heart failure: No evidence of volume overload We will hold patient's outpatient diuretics of Aldactone and torsemide in the setting of acute respiratory failure 5. Acute kidney injury on CKD stage III Creatinine elevated 1.7 Possible secondary to poor p.o. intake, dehydration No evidence of sepsis Continue to hold diuretics, until renal function improves Full code DVT prophylaxis: On Eliquis Disposition: Patient is being transferred to [facility] in [place] via [facility] Total time spent on discharge = 45 mins This includes examination of the patient, discharge planning, medication reconciliation, and communication with other providers. Discharge Instructions Discharge Instructions Date of Service May 03, 2017. Admission Reason for Admission: Respiratory Failure Discharge Discharge Diagnosis / Problem: ACUTE RESPIRATORY FAILURE /LARGE B CELL LYMPHOMA /LARGE LUNGS TUMOR BURDEN Discharge Goals Goal(s): Therapeutic intervention Activity Recommendations Activity Limitations: as noted below . Instructions / Follow-Up Instructions / Follow-Up Pt is transferred to [facility] for further care accepting physician Dr Em Current Hospital Diet Patient's current hospital diet: Discharge Diet Recommended Diet: N/A Pending Studies Studies pending at discharge: no Medical Emergencies . Who to Call and When: Medical Emergencies: If at any time you feel your situation is an emergency, please call 911 immediately. . Non-Emergent Contact Non-Emergency issues call your: Oncologist . . "Provider Documentation" section prepared by Radha Benitez. . VTE Core Measure Inpt VTE Proph given/why not?: Other Anticoagulation (eliquis)
[2017-05-04] MEDS ORDERED: ASPIRIN 81 MG ECTAB PO SCH (09:00)
[2017-05-04] MEDS ORDERED: LEVOFLOXACIN / D5W 750 MG in PREMIXED IN D5W 150 ML IV SCH (14:00)
[2017-05-04] MEDS ORDERED: DIGOXIN 0.125 MG TAB PO SCH (16:00)
[2017-05-05] MEDS ORDERED: VANCOMYCIN TROUGH ONE (17:30)
--- NOTE | 2017-05-11 15:25 | EMERGENCY ROOM VISIT NOTE ---
History First contact with patient: 11:35 Chief Complaint: RESPIRATORY DISTRESS Stated Complaint: RESPIRATORY FAILURE Nursing Triage Summary: pt arrived als from reported resp. distress pt has multiple bruising all over arms from what appears to be blood draws, pt is breathing heavly and stating he is unable to breath pt dx with lymphomia pt in the hospital for three weeks in [place] History of Present Illness The patient is a 71 year old white male who presents to the Emergency Room with complaints of significant respiratory distress that developed this morning. He states he was recently admitted to [facility] for 17 days due to pneumonia and shortness of breath. During that time he had a bronchoscopy that confirmed lymphoma. He was transferred to [facility] yesterday for rehab. He states he was told he was too weak to undergo chemotherapy and needed to get stronger. That was the reason for transfer to [facility]. He has been there less than 24 hours. This morning he awoke with severe shortness of breath and was brought to the ED by ALS ambulance. Family members accompany him today. He has known CHF and COPD. He is currently febrile. Patient denies any nausea or vomiting. No current chest pain. He has known atrial fibrillation. Review of Systems REVIEW OF SYSTEM: HEENT: No dizziness, visual problems, hearing loss, or tinnitus. There is no difficulty swallowing and no oral lesions are present. LYMPH: No adenopathy. PULMONARY: Positive cough, shortness of breath, sputum production. No hemoptysis. CARDIOVASCULAR: No chest pain. Positive history of palpitations, shortness of breath and peripheral edema. GASTROINTESTINAL: No diarrhea, constipation, nausea, vomiting, or abdominal pain. GENITOURINARY: No dysuria, frequency, urgency or nocturia. NEUROLOGIC: No weakness, muscle tenderness, epilepsy or history of neurological problems. MUSCULOSKELETAL: No history of joint tenderness/swelling. No history of arthritis or arthralgias. SKIN: No rashes or lesions. PSYCHIATRIC: No history of depression or mental illness. ENDOCRINE: No history of diabetes, thyroid disorders, or abnormal hair growth. Past Medical/Surgical History Medical Problems: (1) Respiratory failure Elevated cholesterol, hypertension, morbid obesity, CHF, COPD Family History Noncontributory. Social History Smoking Status: Former Smoker Smokeless Tobacco Use: No Alcohol Use: none Drug Use: none Marital Status: Occupation Status: retired Current/Historical Medications Scheduled Apixaban (Eliquis), 5 MG PO BID Aspirin (Aspirin Ec), 81 MG PO DAILY Atorvastatin (Lipitor), 40 MG PO DAILY Cefdinir (Omnicef), 300 MG PO Q12H Digoxin (Digoxin), 0.125 MCG PO DAILY Diltiazem Hcl Ext Rel (Tiazac), 480 MG PO QPM Docusate Sodium (Docusate Sodium), 1 CAP PO BID Fluticasone Furoate-Vilanterol (Breo Ellipta), 1 PUFF INH DAILY Ipratropium-Albuterol (Duoneb), 1 TREATMENT INH QID Ipratropium-Albuterol (Duoneb), 1 TREATMENT INH Q4H Levalbuterol (Levalbuterol), 1.25 MG INH Q6R Prednisone (Prednisone Tab), 20 MG PO DAILY Spironolactone (Aldactone), 25 MG PO DAILYBB Terazosin Hcl (Hytrin), 10 MG PO HS Torsemide (Demadex), 40 MG PO DAILYBB Scheduled PRN Acetaminophen (Tylenol), 500 MG PO Q4 PRN for UNDECIDED Bisacodyl (Bisac-Evac), 1 SUPP KS DAILY PRN for Consult Lorazepam (Ativan), 0.5 MG PO Q8 PRN for Anxiety Magnesium Hydroxide (Milk Of Magnesia), 30 ML PO DAILY PRN for Constipation Metaxalone (Skelaxin), 200 MG PO TID PRN for MUSCLE SPASMS Polyethylene Glycol 3350 (Miralax), 17 GM PO DAILY PRN for Constipation Senna/Docusate Sod (Senokot S), 1 TAB PO DAILY PRN for Constipation Sodium Phosphate/Biphosphate (Fleet Enema), 1 EA KS DAILY PRN for Constipation Trazodone Hcl (Trazodone), 100 MG PO HS PRN for Sleep Allergies Coded Allergies: Ampicillin (Verified Allergy, Unknown, RASH,ITCHING, 05/03/17) Sulbactam (Verified Allergy, Unknown, RASH,ITCHING, 05/03/17) Physical Exam Vital Signs Date Time Temp Pulse Resp B/P (MAP) Pulse Ox O2 Delivery O2 Flow Rate FiO2 05/03/17 13:31 137/101 05/03/17 13:27 98 45 89 05/03/17 13:15 37.3 98 24 130/86 94 Oxymask 4.0 05/03/17 13:15 37.3 05/03/17 13:10 130/86 05/03/17 13:01 134/79 05/03/17 12:57 99 18 05/03/17 12:34 142/84 05/03/17 12:27 113 27 93 05/03/17 11:59 94 Oxymask 3.0 05/03/17 11:57 109 28 95 05/03/17 11:53 118 05/03/17 11:35 38.0 105 32 145/100 97 Non-Rebreather 15.0 05/03/17 11:32 145/100 Physical Exam General: Well-developed, morbidly obese, elderly white male, in acute respiratory distress. Tachypneic with a mask in place at 15 L. Alert and oriented. Skin: Warm and diaphoretic with good turgor. No rashes or lesions. No edema or erythema. Ecchymotic areas on his arms from recent lab draws. No abrasions. HEENT: Normocephalic atraumatic. Eyes PERRLA, EOMI. No conjunctiva or scleral injection. Nares patent bilaterally without turbinate enlargement. No significant drainage. No epistaxis. Oropharynx without erythema or exudate. Uvula midline, oral mucosa moist. No lesions present. Heart: Heart RRR. No MGR. Peripheral pulses are 2+. Lungs: Lungs have wheezing to auscultation. No crackles or rhonchi. Fair air movement. The patient is able to take a deep breath. Abdomen: Abdomen was inspected, auscultated, and palpated. Morbidly obese. Bowel sounds present x 4. Soft, nontender to palpation. No hepato- splenomegaly. No masses noted. Musculoskeletal: Gross motor function of the upper and lower extremities is intact and unremarkable. Neurologic: Gross sensation is intact across the upper and lower extremities by soft touch. Medical Decision & Procedures ER Provider Diagnostic Interpretation: EKG and chest x-ray were obtained today. EKG shows atrial fibrillation with rapid ventricular response. Rate of 102. This was reviewed with Dr. Shane. One view chest x-ray was reviewed by me and read by radiology. There is a 4.7 cm right infrahilar mass-like opacity with asymmetric right hilar enlargement and reticulonodular interstitial thickening, greater within the right lung. Mild left basilar opacity. The findings may reflect pneumonia however a neoplastic process is within the differential. A follow-up chest CT is recommended. Moderate cardiomegaly without evidence for pulmonary edema. Laboratory Results 05/03/17 12:05 Red Blood Count 3.76, Mean Corpuscular Volume 94.1, Mean Corpuscular Hemoglobin 33.8, Mean Corpuscular Hemoglobin Concent 35.9, Mean Platelet Volume 9.4, Neutrophils (%) (Auto) 89.6, Lymphocytes (%) (Auto) 3.3, Monocytes (%) (Auto) 5.3, Eosinophils (%) (Auto) 0.1, Basophils (%) (Auto) 0.0, Neutrophils # (Auto) 9.93, Lymphocytes # (Auto) 0.37, Monocytes # (Auto) 0.59, Eosinophils # (Auto) 0.01, Basophils # (Auto) 0.00 05/03/17 12:05 Test 05/03/17 12:05 05/03/17 12:44 White Blood Count 11.09 K/uL (4.8-10.8) Red Blood Count 3.76 M/uL (4.7-6.1) Hemoglobin 12.7 g/dL (14.0-18.0) Hematocrit 35.4 % (42-52) Mean Corpuscular Volume 94.1 fL (80-100) Mean Corpuscular Hemoglobin 33.8 pg (25-34) Mean Corpuscular Hemoglobin Concent 35.9 g/dl (32-36) Platelet Count 175 K/uL (130-400) Mean Platelet Volume 9.4 fL (7.4-10.4) Neutrophils (%) (Auto) 89.6 % Lymphocytes (%) (Auto) 3.3 % Monocytes (%) (Auto) 5.3 % Eosinophils (%) (Auto) 0.1 % Basophils (%) (Auto) 0.0 % Neutrophils # (Auto) 9.93 K/uL (1.4-6.5) Lymphocytes # (Auto) 0.37 K/uL (1.2-3.4) Monocytes # (Auto) 0.59 K/uL (0.11-0.59) Eosinophils # (Auto) 0.01 K/uL (0-0.5) Basophils # (Auto) 0.00 K/uL (0-0.2) RDW Standard Deviation 48.1 fL (36.4-46.3) RDW Coefficient of Variation 13.9 % (11.5-14.5) Immature Granulocyte % (Auto) 1.7 % Immature Granulocyte # (Auto) 0.19 K/uL (0.00-0.02) Toxic Vacuolation 1+ Anion Gap 10.0 mmol/L (3-11) Est Creatinine Clear Calc Drug Dose 60.4 ml/min Estimated GFR () 46.3 Estimated GFR (Non- 40.0 BUN/Creatinine Ratio 22.8 (10-20) Calcium Level 8.0 mg/dl (8.5-10.1) Total Bilirubin 0.9 mg/dl (0.2-1) Aspartate Amino Transf (AST/SGOT) 80 U/L (15-37) Alanine Aminotransferase (ALT/SGPT) 46 U/L (12-78) Alkaline Phosphatase 87 U/L (45-117) Total Creatine Kinase 377 U/L (39-308) Creatine Kinase MB 3.7 ng/ml (0.5-3.6) Creatine Kinase MB Ratio 1.0 (0-3.0) Troponin I < 0.015 ng/ml (0-0.045) Total Protein 6.9 gm/dl (6.4-8.2) Albumin 2.2 gm/dl (3.4-5.0) Globulin 4.7 gm/dl (2.5-4.0) Albumin/Globulin Ratio 0.5 (0.9-2) Prothrombin Time 14.5 SECONDS (9.0-12.0) Prothromb Time International Ratio 1.4 (0.9-1.1) Activated Partial Thromboplast Time 38.8 SECONDS (21.0-31.0) Partial Thromboplastin Ratio 1.5 Procalcitonin 0.82 ng/ml (0-0.5) CBC, chemistry panel, PT/INR, CK/CK-MB, and troponin were obtained. WBCs are mildly elevated at 11.09 BUN and creatinine are mildly elevated. H&H are mildly low. CK is elevated with elevated MB fraction. Normal troponin. INR mildly elevated at 1.4. Medications Administered Medications (Trade) Dose Ordered Sig/Alejandro Route Start Time Stop Time Status Last Admin Dose Admin Albuterol/ Ipratropium (Duoneb) 3 ml NOW STAT INH 05/03/17 11:57 05/03/17 11:59 DC 05/03/17 11:57 3 ML Acetaminophen 100 ml @ 400 mls/hr ONE ONCE IV 05/03/17 12:00 05/03/17 12:14 DC 05/03/17 12:00 400 MLS/HR Lorazepam (Ativan Inj) 0.5 mg NOW STAT IV 05/03/17 13:14 05/03/17 13:16 DC 05/03/17 13:29 0.5 MG Levofloxacin (Levaquin / D5W) 750 mg NOW ONCE IV 05/03/17 13:45 05/03/17 13:46 DC 05/03/17 14:34 750 MG DuoNeb nebulizer treatment 1, Ofirmev 1 g IV, Ativan 0.5 mg IV, Levaquin 750 mg IV ED Course Patient was educated regarding today's findings. Conservative care measures were discussed. He was placed on an oxygen mask at 15 L while in the ED. IV was established. Labs were obtained. Chest x-ray and EKG were obtained. Given his fever, he was given Ofirmev 1 g IV. He was also given Ativan 0.5 mg IV for his anxiety, and a DuoNeb treatment. Records were also obtained from the [facility] system. CT scan obtained April 15 shows numerous rounded nodules in the bilateral lungs the largest measuring 33 mm in the left lower lobe. Finding suggested multifocal pneumonia though neoplastic process is not entirely excluded. Follow-up CT evaluation was recommended. Multiple prominent mediastinal lymph nodes, likely reactive, were present. BUN and creatinine on May 02 was 38 and 1.6. CBC that date showed WBCs of 8.98, hemoglobin 12.6 and hematocrit 36.9. Digoxin level was 0.8. Chest x-ray today showed a 4.7 centimeter right infrahilar mass like opacity with right hilar enlargement. Because this could reflect pneumonia, patient was given Levaquin 750 mg IV. This may also be part of his neoplastic process. He did receive a DuoNeb treatment and this did help his respiratory difficulty. Because of his respiratory distress, this patient will require admission for further management. The [facility] hospitalist team was consulted. Please see Dr. Benitez's dictation for final management. Patient was seen in conjunction with Dr. Shane, who also evaluated the patient and concurred with today's diagnosis and treatment plan. Patient remained stable while in the ED. Medical Decision Possibility of pneumonia, tumor load, PE, ACS, acute SD, COPD exacerbation, CHF , and sepsis were considered among others. [place] Drug Monitoring Program Search Results: patient reviewed within database Impression Primary Impression: Respiratory failure Additional Impressions: Tachypnea B-cell lymphoma Atrial fibrillation Departure Information Dispostion Admitted as an inpatient Condition FAIR Prescriptions Levalbuterol (Levalbuterol) 1.25 Mg/0.5 Ml Nebu 1.25 MG INH Q6R for 30 Days Prov: Radha Benitez M.D. 05/03/17 Referrals Amaya Don PA-C (PCP) Forms HOME CARE DOCUMENTATION FORM, IMPORTANT VISIT INFORMATION Patient Instructions COPD - [facility], Croup - [facility], Asthma - [facility], [facility] Problem Qualifiers Primary Impression: Respiratory failure Chronicity: acute Respiratory failure complication: hypoxia Qualified Codes : J96.01 - Acute respiratory failure with hypoxia Additional Impressions: B-cell lymphoma B-cell lymphoma type: unspecified B-cell Lymphoma site: unspecified region Qualified Codes: C85.10 - Unspecified B-cell lymphoma, unspecified site Atrial fibrillation Atrial fibrillation type: unspecified Qualified Codes: I48.91 - Unspecified atrial fibrillation
== END 2017-05-03 23:20 | disposition short-term general hospital (02) | DRG 189 ==
LOC: EDBD 11:27 → C.EDC 11:29 → C.2T 13:46 → ENRESERV 13:57 → C.MSICU 19:40
PROVIDERS: ADMIT Hospitalist; ATTEND Hospitalist
PROC: 0BH17EZ Insertion of Endotracheal Airway into Trachea, Via Natural or Artificial Opening (ICD-10-PCS; principal; 2017-05-03)
PROC: 5A09358 Assistance with Respiratory Ventilation, Less than 24 Consecutive Hours, Intermittent Positive Airway Pressure (ICD-10-PCS; principal; 2017-05-03)
DX: J96.21 Acute and chronic respiratory failure with hypoxia (principal); C85.12 Unspecified B-cell lymphoma, intrathoracic lymph nodes; E87.1 Hypo-osmolality and hyponatremia; Z68.43 Body mass index [BMI] 50.0-59.9, adult; Z88.1 Allergy status to other antibiotic agents; G47.33 Obstructive sleep apnea (adult) (pediatric); I48.91 Unspecified atrial fibrillation; J44.9 Chronic obstructive pulmonary disease, unspecified; E86.0 Dehydration; E66.01 Morbid (severe) obesity due to excess calories; Z79.52 Long term (current) use of systemic steroids; Z87.891 Personal history of nicotine dependence